=== PATIENT | male | born 1995 | race African-American/Black ===

== ENCOUNTER 2016-10-26 18:20 | Emergency (ER) | payer MEDICAID ==
[~2016-10-26] VITALS: Ht 172.7 cm; Wt 60.7 kg
[2016-10-26] MEDS ORDERED: hydrOXYzine 50 MG/ML IM ONE (19:30)
[2016-10-26] MEDS ORDERED: SODIUM CHLORIDE FLUSH 10ML SYR IVF ONE (19:30)
[2016-10-26] MEDS ORDERED: SODIUM CHLORIDE 0.9% 1,000ML IVBOLUS ONE (19:30)
[2016-10-26] MEDS ORDERED: LORazepam 2 MG/ML, 1ML ONE (20:14)
[2016-10-26 20:23] LABS: BLOOD UREA NITROGEN 8 mg/dL (7-18)
[2016-10-26] MEDS ORDERED: LORazepam 2 MG/ML, 1ML IVPush ONE (20:30)
[2016-10-26 20:49] LABS: IS PT STATUS REG ER OR PRE ER? YES
[2016-10-26] MEDS ORDERED: POTASSIUM CHLORIDE 20 MEQ TAB.ER.PRT ONE (21:20)
[2016-10-26] MEDS ORDERED: POTASSIUM CHLORIDE 20 MEQ TAB.ER.PRT PO ONE (21:30)
[2016-10-26 21:45] VITALS: BP 129/77
== END 2016-10-26 21:31 ==
LOC: ED 21:30
DX: R00.2 Palpitations (principal); F41.1 Generalized anxiety disorder; E87.6 Hypokalemia; F12.10 Cannabis abuse, uncomplicated
CPT/HCPCS: 36415; 71010; 80048; 82040; 84439; 84443; 84484; 85025; 93005; 96374; 99285; J2060; J7030

== ENCOUNTER 2020-03-03 12:13 | Emergency (ER) | payer SELFPAY ==
[~2020-03-03] VITALS: Ht 172.7 cm; Wt 65.4 kg
[2020-03-03 13:06] LABS: BASOPHILS % (AUTO) 0 % (0-1); EOSINOPHILS % (AUTO) 1 % (1-7); LYMPHOCYTES % (AUTO) 39 % (22-44); MEAN CORPUSCULAR HEMOGLOBIN 32.3 pg (27.5-34.5); MEAN PLATELET VOLUME 9.5 fL (7.4-10.4); MONOCYTES % (AUTO) 10 % (2-9); NEUTROPHILS % (AUTO) 50 % (42-75); PLATELET COUNT 189 x10^3/uL (130-400); RED BLOOD COUNT 5.12 x10^6/uL (4.38-5.82); RED CELL DISTRIBUTION WIDTH 13.4 % (9.4-14.8)
[2020-03-03 13:16] LABS: CHLORIDE 110 mmol/L (98-107)
[2020-03-03 13:21] LABS: ALBUMIN 4.5 g/dL (3.4-5.0); ANION GAP 4 mmol/L (5-15); CALCIUM 10.3 mg/dL (8.5-10.1); CREATININE 1.03 mg/dL (0.7-1.3)
[2020-03-03 13:26] LABS: MD NO
--- NOTE | 2020-03-03 15:31 | NUR ---
PT FROM LOBBY TO ROOM
[2020-03-03 16:39] VITALS: BP 130/80
--- NOTE | 2020-03-03 16:40 | NUR ---
TASK RN NOTE: DC INSTRUCTIONS GIVEN, PT A&O, RESPS EVENAND UNLABORED, NADN. PT AMBUALTORY TO DC DESK WITH STEADY GAIT, NO COMPLAINT AT DC.
== END 2020-03-03 16:41 | disposition home or self-care (01) ==
LOC: ED 15:06
DX: F12.10 Cannabis abuse, uncomplicated (principal); F10.20 Alcohol dependence, uncomplicated; F41.1 Generalized anxiety disorder; R20.2 Paresthesia of skin; E87.6 Hypokalemia; R53.1 Weakness; R42 Dizziness and giddiness; R06.02 Shortness of breath; R07.89 Other chest pain; F17.210 Nicotine dependence, cigarettes, uncomplicated; Y90.0 Blood alcohol level of less than 20 mg/100 ml
CPT/HCPCS: 36415; 71045; 80048; 82040; 85025; 93005; 99285; 99406